=== PATIENT | female | born 1945 | race Caucasian/White ===

== ENCOUNTER 2017-07-08 13:55 | Outpatient (CLI) | payer OTHER ==
[~2017-07-08] VITALS: Ht 172.7 cm; Wt 81.7 kg
[2017-07-08 13:56] VITALS: BP 109/57; PULSE 75; RESP 18; Ht 172.7 cm; Wt 81.7 kg
--- NOTE | 2017-07-08 17:26 | PN ---
Date/Time of Note Date/Time of Note DATE: 07/08/17 TIME: 17:22 Assessment/Plan Assessment/Plan Assessment/Plan [facility] Progress Note Date of Service: 07/08/17 Location of Service: [facility] Today's Assessment & Plan: Overall stable with perc GB drain. Need official cardiology evaluation of perioperative risk prior to decision to take to OR vs. discontinuation of drain and follow up. No indication for acute surgical intervention. Discussed with patient (no family in the room) and answered all questions. Patient appeared to understand and agreed with plans. With above assessment, I've recommended the following for today: 1. Cardiology consultation with assessment of congestive heart failure and any risks that can be mitigated 2. We'll decide on drain management and possible surgical intervention after above is done Thank you again for allowing us to participate in the care of this very pleasant lady and her wonderful family. If there are any questions, please feel free to call me at area code [phone]. Nature of presenting problem: high severity Please note that, given the extensive number of diagnoses or management options , the extensive amount and/or complexity of data needed to be reviewed, and high risk of complications and/or morbidity or mortality, this qualifies as high complexity type of decision-making. Disclaimers: 1. Inadvertent spelling and grammatical errors are likely due to electronic health record (EHR)/dictation software used and do not reflect on the quality of delivered patient care. 2. The electronic timestamp recorded on this note does not necessarily reflect the actual date and time of the visit or the service. 3. Portions of this note may have been created through electronic templates and computer algorithms that might bring in information either from the system or from other physicians and providers. Please note that such information may or may not contain errors, the occurrence of which are outside of my control. In general (but not always) this happens either in the beginning or at the end of the note. The portion of the note that I have created are generally done in 1 continuous block of text, flanked at the beginning and at the end by " ", and entered into one field in the EHR. 4. There may be other unanticipated errors in the note that are outside of my control. I can only attest to the portions of the note that I have created. Updated clinical summary: A very pleasant 71-year-old lady, known to me since March 2017 when we managed severe acute on chronic cholecystitis in the setting of unacceptable operative risk due to congestive heart failure with percutaneous cholecystostomy tube placement, and with significant other comorbidities including BMI 27.2 ( previously 28.2 04/01), readmitted to [facility] on 06/18/17 when she presented with decreased output through her cholecystostomy tube. Drain sinogram and exchange on 06/19/17 with findings: 1. Initial cholangiogram demonstrates the cholecystostomy tube to be seen in the peripheral part of the gallbladder. There is multiple gallstones. There continues to be mild thickening of the gallbladder wall fundus.2. Successful cholecystostomy tube exchange for same size 8.5 [place] biliary drain. Contrast injection confirms intraluminal positioning. Due to extensive number of stones, the drain cannot be advanced into the midbody of the gallbladder. Discharged 06/19/17. Comorbidities: 1. BMI 27.2 (previously 28.2 04/01) 2. Congestive heart failure. History of exacerbation in 2009. Interestingly, the patient was able to walk with her outside for more than 40 minutes up to 2014. Currently, the patient gets severely short of breath trying to go up even one flight of stairs. She is able to move around in her house, but is unable to walk outside for long distances. Unclear how much of this is due to her joint problems. Patient does not have a risk lead site. She has been monitored by her primary care physician with screening EKGs and echocardiography 's. Records currently unavailable. 3. Hypertension 4. Hypercholesterolemia 5. History of hepatitis in her 20s 6. Drain sinogram and exchange [facility] 06/19/17: 1. Initial cholangiogram demonstrates the cholecystostomy tube to be seen in the peripheral part of the gallbladder. There is multiple gallstones. There continues to be mild thickening of the gallbladder wall fundus.. 2. Successful cholecystostomy tube exchange for same size 8.5 [place] biliary drain. Contrast injection confirms intraluminal positioning. Due to extensive number of stones, the drain cannot be advanced into the midbody of the gallbladder Subjective: No major events or complaints since d/c from [facility]. No major pain complaints and reportedly under control with medications. No N/V, SOB or CP. + bowel activity. Drian output remains in the 20 cc range. Objective: Vitals: reviewed; please also see EHR Physical Exam: Lungs: breathing comfortably without tachypnea; no audible wheezes, rales or rhonchi on gross exam Abd: Soft, non-tender, and non-distended; no peritoneal signs or guarding; drain with purulent output. Perc GB drain with purulent output in tubing and some in the bag (small amounts) Skin: Appears pink and feels warm to touch. Neuro: Awake, alert and follows commands appropriately Exam/Review of Systems Vital Signs Vitals Vital Signs Date Time Temp Pulse Resp B/P Pulse Ox O2 Delivery O2 Flow Rate FiO2 07/08/17 13:56 97.9 75 18 109/57 97 Room Air ALLISON OVALLE M.D. Jul 08, 2017 17:26
== END 2017-07-08 17:00 | disposition home or self-care (01) ==
LOC: HPC 13:55
PROVIDERS: ATTEND Transplant Surgery
DX: K80.12 Calculus of gallbladder with acute and chronic cholecystitis without obstruction (principal); I50.9 Heart failure, unspecified; I10 Essential (primary) hypertension; E78.00 Pure hypercholesterolemia, unspecified
CPT/HCPCS: G0463

== ENCOUNTER 2017-08-05 11:39 | Outpatient (CLI) | payer OTHER ==
[~2017-08-05] VITALS: Ht 172.7 cm; Wt 81.8 kg
[2017-08-05 11:43] VITALS: BP 116/67; PULSE 61; RESP 18; Ht 172.7 cm; Wt 81.8 kg
--- NOTE | 2017-08-05 13:50 | PN ---
DATE: 08/05/2017 [facility] PROGRESS NOTE PLACE OF SERVICE: [facility]. SUBJECTIVE: The patient returns today as a preoperative visit for scheduled laparoscopic cholecystectomy next week. She reports feeling well and has had 20 to 40 mL of drainage from her percutaneous cholecystostomy tube. No fevers or chills. No significant abdominal pain, no changes in her appetite and no other major complaints. OBJECTIVE: GENERAL: The patient appears to be afebrile and has normal white vital signs. ABDOMEN: Soft, nontender and nondistended. There is serous drainage with a hint of bile in the percutaneous cholecystostomy bag and a bit of purulent fluid. There are no peritoneal signs or guarding. SKIN: Appears to be pink and feels warm to touch. NEUROLOGIC: She is awake, alert and follows commands appropriately. 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 Alternatively, we discussed the option of just removing the drain, but I believe that this would not serve the purpose for patient well and that it would still have her at risk for further problems in the near future. The patient appeared to understand and agreed with the plans. With above assessments, I recommend the following: Proceed with scheduling laparoscopic cholecystectomy next week. Thank you again for allowing us to participate in the care of this very pleasant lady and her wonderful family. If there are any questions, please feel free to contact me at [phone]. Nature of presenting problem: High risk. Complexity of decision making: High complexity. Updated Clinical Summary: A very pleasant 71-year-old lady, known to me since March 2017 when we managed severe acute on chronic cholecystitis in the setting of unacceptable operative risk due to congestive heart failure with percutaneous cholecystostomy tube placement, and with significant other comorbidities including BMI 27.2 ( previously 28.2 04/01), readmitted to [facility] on 06/18/17 when she presented with decreased output through her cholecystostomy tube. Drain sinogram and exchange on 06/19/17 with findings: 1. Initial cholangiogram demonstrates the cholecystostomy tube to be seen in the peripheral part of the gallbladder. There is multiple gallstones. There continues to be mild thickening of the gallbladder wall fundus.2. Successful cholecystostomy tube exchange for same size 8.5 [place] biliary drain. Contrast injection confirms intraluminal positioning. Due to extensive number of stones, the drain cannot be advanced into the midbody of the gallbladder. Discharged 06/19/17. Comorbidities: 1. BMI 28.2 2. Congestive heart failure. History of exacerbation in 2009. Interestingly, the patient was able to walk with her outside for more than 40 minutes up to 2 years ago. Currently, the patient gets severely short of breath trying to go up even one flight of stairs. She is able to move around in her house, but is unable to walk outside for long distances. Unclear how much of this is due to her joint problems. 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 She has been monitored by her primary care physician with screening EKGs and echocardiography's. Records currently unavailable. 3. Hypertension 4. Hypercholesterolemia 5. History of hepatitis in her 20s 6. Drain sinogram and exchange [facility] 06/19/17: 1. Initial cholangiogram demonstrates the cholecystostomy tube to be seen in the peripheral part of the gallbladder. There is multiple gallstones. There continues to be mild thickening of the gallbladder wall fundus.. 2. Successful cholecystostomy tube exchange for same size 8.5 Palestinian biliary drain. Contrast injection confirms intraluminal positioning. Due to extensive number of stones, the drain cannot be advanced into the midbody of the gallbladder Dictated By: ALLISON GARCIA/NTS Conf#: [id number] DID#: [id number] CC: KIARRA NORTON MD;*EndCC* MTDD
== END 2017-08-05 16:30 | disposition home or self-care (01) ==
LOC: HPC 11:39
PROVIDERS: ATTEND Transplant Surgery
DX: I50.9 Heart failure, unspecified (principal); I10 Essential (primary) hypertension; E78.00 Pure hypercholesterolemia, unspecified; K75.9 Inflammatory liver disease, unspecified
CPT/HCPCS: G0463

== ENCOUNTER 2017-08-13 07:53 | Inpatient (IN) | payer OTHER ==
[~2017-08-13] VITALS: Ht 172.7 cm; Wt 81.4 kg
[2017-08-13] VITALS (19 sets, daily range): BP systolic 97–127; BP diastolic 55–77; PULSE 66–98; RESP 11–34; Ht 172.7 cm; Wt 81.4 kg
[2017-08-13] MEDS ORDERED: LISI20TA11 PO (08:30)
[2017-08-13] MEDS ORDERED: CARV25TA79 PO (08:30)
[2017-08-13] MEDS ORDERED: FURO40TA4 PO (08:30)
[2017-08-13] MEDS ORDERED: SIMV40TA2 PO (08:31)
[2017-08-13] MEDS ORDERED: MAGN500C PO (08:32)
[2017-08-13] MEDS ORDERED: ASPI-664 PO (08:32)
[2017-08-13] MEDS ORDERED: OMEG1CAP17 PO (08:33)
[2017-08-13] MEDS ORDERED: ALEN70TA30 PO (08:34)
[2017-08-13] MEDS ORDERED: CALC600T24 PO (08:34)
[2017-08-13] MEDS ORDERED: BUPIVACAINE 0.5%/EPI (SDV) 30 ML INJ ONE (08:38)
[2017-08-13] MEDS ORDERED: CEFAZOLIN 2 GM/50 ML (PMX) 50 ML IVPB SCH (09:00)
--- NOTE | 2017-08-13 10:27 | HPN ---
Date/Time of Note Date/Time of Note DATE: 08/13/17 TIME: 10:27 Interval H&P Admission Note Pt. seen H&P reviewed: No system changes Pt. seen H&P reviewed. No system changes (I attest that I have seen and examined the patient and reviewed the operation in detail, as well as its risks , benefits and alternatives of the operation). I attest that I have seen and examined the patient and reviewed in detail the operation, and its associated risks, benefits and alternative. I have answered all the patient's questions to the best of my ability and the patient wishes to proceed. Please refer to rest of electronic medical record for additional updates. ALLISON OVALLE M.D. Aug 13, 2017 10:27
[2017-08-13] MEDS ORDERED: PROPOFOL 20 ML ONE (10:38)
[2017-08-13] MEDS ORDERED: LIDOCAINE 2% (SDV) 5 ML INJ ONE (10:38)
[2017-08-13] MEDS ORDERED: SUCCINYLCHOLINE CHLORIDE 100 MG/5 ML SYG IV ONE (10:38)
[2017-08-13] MEDS ORDERED: ROCURONIUM 50 MG INJ ONE ×2 (10:38→12:33)
[2017-08-13] MEDS ORDERED: NEOSTIGMINE 3 MG/3 ML SYRINGE ONE ×2 (10:38→12:33)
[2017-08-13] MEDS ORDERED: GLYCOPYRROLATE 0.4 MG INJ ONE ×2 (10:38→12:33)
[2017-08-13] MEDS ORDERED: MEPERIDINE 100 MG INJ ONE (10:38)
[2017-08-13] MEDS ORDERED: METOCLOPRAMIDE 10 MG INJ ONE (10:39)
[2017-08-13] MEDS ORDERED: ONDANSETRON 4 MG INJ ONE (10:39)
[2017-08-13] MEDS ORDERED: CEFAZOLIN 1 GM INJ ONE (10:39)
[2017-08-13] MEDS ORDERED: BUPIVACAINE 0.25%/EPI (SDV) 30 ML INJ INJ ONE (13:22)
[2017-08-13] MEDS ORDERED: ONDANSETRON 4 MG INJ IV PRN (13:30)
[2017-08-13] MEDS ORDERED: FENTAnyl 50 MCG/ML VIAL IV PRN ×3 (13:30)
[2017-08-13] MEDS ORDERED: METOCLOPRAMIDE 10 MG INJ IV PRN (13:30)
[2017-08-13] MEDS ORDERED: MIDAZOLAM 1 MG/ML 2 ML INJ IV PRN (13:30)
[2017-08-13] MEDS ORDERED: hydrALAzine 20 MG INJ IV PRN (13:30)
[2017-08-13] MEDS ORDERED: OXYCODONE/ACETAMINOPHEN (5/325) TAB PO PRN ×2 (13:30)
[2017-08-13] MEDS ORDERED: LABETALOL HCL 20MG INJ IV PRN (13:30)
[2017-08-13] MEDS ORDERED: MEPERIDINE 25 MG INJ IV PRN (13:30)
[2017-08-13] MEDS ORDERED: HYDROmorphONE (0.2 MG/ML) 10ML SYG IV PRN ×2 (13:30)
[2017-08-13] MEDS ORDERED: DIPHENHYDRAMINE 50 MG INJ IV PRN (13:30)
[2017-08-13] MEDS ORDERED: EPHEDrine SULFATE 50 MG/5 ML SYG IV PRN (13:30)
[2017-08-13] MEDS ORDERED: HYDROCODONE/APAP (5/325) TAB PO PRN ×2 (14:30)
[2017-08-13] MEDS ORDERED: DOCUSATE SODIUM 100 MG CAP PO PRN (14:30)
[2017-08-13] MEDS ORDERED: NA PHOSPHATE/BIPHOS 133 ML ENEMA PR PRN (14:30)
[2017-08-13] MEDS ORDERED: HYDROmorphONE 0.5 MG/0.5 ML SYG IV PRN (14:30)
[2017-08-13] MEDS ORDERED: BISACODYL 10 MG SUPP PR PRN (14:30)
--- NOTE | 2017-08-13 14:30 | OPR ---
Date/Time of Note Date/Time of Note DATE: 08/13/17 TIME: 14:30 Operative Report Free Text/Dictation [facility] INPATIENT OPERATIVE NOTE PLACE OF SERVICE: [facility] DATE OF SURGERY: 08/13/2017 PREOPERATIVE DIAGNOSIS: 1. Severe acute cholecystitis requiring percutaneous cholecystostomy drain placement February 2017 [facility] 1. BMI 28.2 2. Congestive heart failure. History of exacerbation in 2009. Interestingly, the patient was able to walk with her outside for more than 40 minutes up to 2 years ago. Currently, the patient gets severely short of breath trying to go up even one flight of stairs. She is able to move around in her house, but is unable to walk outside for long distances. Unclear how much of this is due to her joint problems. Patient does not have a sheeting puller site. She has been monitored by her primary care physician with screening EKGs and echocardiography's. Records currently unavailable. 3. Hypertension 4. Hypercholesterolemia 5. History of hepatitis in her 20s 6. Drain sinogram and exchange [facility] 06/19/17: Initial cholangiogram demonstrates the cholecystostomy tube to be seen in the peripheral part of the gallbladder. There is multiple gallstones. There continues to be mild thickening of the gallbladder wall fundus. Successful cholecystostomy tube exchange for same size 8.5 [place] biliary drain. Contrast injection confirms intraluminal positioning. Due to extensive number of stones, the drain cannot be advanced into the midbody of the gallbladder POSTOPERATIVE DIAGNOSIS: 1. Severe acute cholecystitis requiring percutaneous cholecystostomy drain placement February 2017 [facility] 1. BMI 28.2 2. Congestive heart failure. History of exacerbation in 2009. Interestingly, the patient was able to walk with her outside for more than 40 minutes up to 2 years ago. Currently, the patient gets severely short of breath trying to go up even one flight of stairs. She is able to move around in her house, but is unable to walk outside for long distances. Unclear how much of this is due to her joint problems. Patient does not have a sheeting puller site. She has been monitored by her primary care physician with screening EKGs and echocardiography's. Records currently unavailable. 3. Hypertension 4. Hypercholesterolemia 5. History of hepatitis in her 20s 6. Drain sinogram and exchange [facility] 06/19/17: Initial cholangiogram demonstrates the cholecystostomy tube to be seen in the peripheral part of the gallbladder. There is multiple gallstones. There continues to be mild thickening of the gallbladder wall fundus. Successful cholecystostomy tube exchange for same size 8.5 [place] biliary drain. Contrast injection confirms intraluminal positioning. Due to extensive number of stones, the drain cannot be advanced into the midbody of the gallbladder OPERATION: 1. Laparoscopic cholecystectomy SURGEON: Allison Ovalle M.D. DATA COMMUNICATIONS TECHNICIAN: None ANESTHESIA: General endotracheal tube anesthesia ANESTHESIOLOGIST: Adonis Camarillo M.D. BRIEF SUMMARY: An otherwise uncomplicated but challenging laparoscopic cholecystectomy was performed with findings of severe chronic cholecystitis. Updated Clinical Summary: A very pleasant 71-year-old lady, known to me since March 2017 when we managed severe acute on chronic cholecystitis in the setting of unacceptable operative risk due to congestive heart failure with percutaneous cholecystostomy tube placement, and with significant other comorbidities including BMI 27.2 ( previously 28.2 04/01), readmitted to [facility] on 06/18/17 when she presented with decreased output through her cholecystostomy tube. Drain sinogram and exchange on 06/19/17 with findings: 1. Initial cholangiogram demonstrates the cholecystostomy tube to be seen in the peripheral part of the gallbladder. There is multiple gallstones. There continues to be mild thickening of the gallbladder wall fundus.2. Successful cholecystostomy tube exchange for same size 8.5 [place] biliary drain. Contrast injection confirms intraluminal positioning. Due to extensive number of stones, the drain cannot be advanced into the midbody of the gallbladder. Discharged 06/19/17. Comorbidities: 1. BMI 28.2 2. Congestive heart failure. History of exacerbation in 2009. Interestingly, the patient was able to walk with her outside for more than 40 minutes up to 2 years ago. Currently, the patient gets severely short of breath trying to go up even one flight of stairs. She is able to move around in her house, but is unable to walk outside for long distances. Unclear how much of this is due to her joint problems. Patient does not have a sheeting puller site. She has been monitored by her primary care physician with screening EKGs and echocardiography's. Records currently unavailable. 3. Hypertension 4. Hypercholesterolemia 5. History of hepatitis in her 20s 6. Drain sinogram and exchange [facility] 06/19/17: 1. Initial cholangiogram demonstrates the cholecystostomy tube to be seen in the peripheral part of the gallbladder. There is multiple gallstones. There continues to be mild thickening of the gallbladder wall fundus.. 2. Successful cholecystostomy tube exchange for same size 8.5 [place] biliary drain. Contrast injection confirms intraluminal positioning. Due to extensive number of stones, the drain cannot be advanced into the midbody of the gallbladder BRIEF HISTORY: The patient is a very pleasant 71-year-old lady, known to me since March 2017 when we managed severe acute on chronic cholecystitis in the setting of what we believe that the time to be unacceptable operative risk due to congestive heart failure with percutaneous cholecystostomy tube placement at [facility]. Patient had one other admission of the hospital which was managed nonoperatively. Her percutaneous cholecystostomy drain was checked and repositioned/exchanged. Further history that was obtained indicated probable less amount of risk from congestive heart failure. She had careful evaluation by cardiology who deemed her to be moderate risk for an operative intervention. Given the appearance of her images and clinical picture, I still recommend that we perform a laparoscopic, possible open cholecystectomy. We reviewed the operation in detail as well as the risks, benefits, alternatives, and expected outcomes of this operation. After careful consideration of all the risks, benefits, and alternatives, the patient and family appeared to understand those risks and wished to proceed with surgery. For a detailed report of my consultation with patient and family, please refer to my separate consultation note. STATEMENT OF THE INFORMED CONSENT: The patient and family appeared to understand the risks of the operation to include, but not be limited to risk of postoperative pain and scar tissue, possible infection or bleeding requiring other interventions such as opening the wound, placement of drainage catheters, or other operative interventions; possible injury to surrounding to structures including bowel, bladder, bile duct, or blood vessels, or solid organs such as liver, kidney, or pancreas requiring other interventions or procedures; possible leakage of bile from surgical clip sites, suture lines, or worse, from common bile duct injury, causing significant increase in morbidity and mortality and requiring multiple interventions including but not limited to, placement of drainage catheters, imaging studies, as well as operative interventions; possible other source of sepsis such as urinary tract infections or pneumonias, or other sources of potentially life threatening problems such as deep venous thrombus formation causing pulmonary embolism, myocardial arrhythmias and infarctions, and even . Patient and family clearly understood that her risk is significantly above average given her cardiac history. Our plan was careful monitoring of the patient in house after the operation for any cardiac issues postop. After careful consideration of all their options, the patient and family appeared to understand and wished to proceed with surgery. DESCRIPTION OF PROCEDURE: After obtaining informed consent, the patient was brought into the operating room and was placed in a normal supine position, where successful general endotracheal tube anesthesia was performed. The patient 's abdominal skin was prepped and draped, from the nipple line down to the level of the groins, in the usual sterile fashion. Intravenous access was already in place, and appropriately chosen and dosed prophylactic intravenous antimicrobials were administered. We then called a surgical time-out where patient's identification, date of , nature of the operation, allergies, presence of intravenous antimicrobials, presence of needed equipment, and any other concerns were reviewed and agreed upon by all members of the operating room team. We then started the operation by placing a 5-mm skin incision in the right- upper quadrant, subcostal midclavicular line, and introduced a 5-mm [employer] trocar into the peritoneal space, visualizing all the layers of the abdominal wall as we entered. Note that there was no indication of any injury to underlying structures once we entered the peritoneum. We insufflated the abdominal cavity to a maximum pressure of 15 mmHg, again, confirmed lack of any injury to underlying structures prior to visualizing the rest of the abdominal cavity. We could not see the fundus of the gallbladder or for that matter most of the anatomy below the right edge of liver. There was no evidence of malignancy. No evidence of calcifications or significant issues with adhesions, or other abnormalities. The liver appeared to be healthy. With this information, we went a head and placed the other trocars under direct visualization, after injecting their sites with 0.25% Marcaine with epinephrine , placing a 5-mm trocar in the umbilical midline area, a 5-mm trocar in the right anterior axillary line, and a 12-mm trocar in the midline subxiphoid region. With our instruments in place, we had excellent visualization and access to the right-upper quadrant. We then started a very meticulous dissection with use of blunt dissection and judicious use of cautery in order to carefully take down the omental adhesions onto the body of the gallbladder which were extensive and encompassed the entire length of the gallbladder. After careful dissection of more than 30 minutes, I was able to completely free the omental adhesions as well as the duodenal adhesions onto the body of the gallbladder without any injury to underlying structures. We placed a Ray-Krystle inside and use this to lift the liver up while we used cautery and blunt dissection to take the gallbladder top- down in order to maximize the degree of safety of the operation given the amount of scar tissue in the area of triangle of Calot low. Shortly after start of the dissection, we saw that we had entered the gallbladder. We use a suction tip to suction off excess fluid from this region and made this opening larger in order to be able to use the stone concession cashier to remove innumerable small to medium sized stones from the gallbladder. All of these were meticulously removed and there was no stones that were spilled and left behind. The wall the gallbladder was visible and it was healthy besides the presence of the stones. I was able to see the pigtail catheter coming through the gallbladder bed into the gallbladder itself. We remove this catheter from the outside (in 2 pieces) and send this to pathology for gross ID only. I then continued the dissection of the gallbladder all the way down to the area of triangle of Calot low. We were able to eventually identify the course of the cystic artery and circumferentially isolated before transection between 2 surgical endoclips proximally and one distally. I then continued the dissection until we were satisfied that we had the cystic duct isolated. Since the diameter of this structure was larger than the 10 mm clip food adviser, I used one firing of the vascular (white) load of the Endo ANYI stapler (45 mm) to transect across the cystic duct region and separate the gallbladder from the body. The stapler fired without any technical difficulties and the staple rows appear to be nice and signal helper. The staple line was hemostatic and there was no bile leakage. We then delivered the gallbladder out inside of an EndoCatch bag through the 12- mm trocar site without enlarging the fascia or contaminating the wound. The gallbladder was sent to Pathology for evaluation. Returning to the abdominal cavity, we ensured that there was adequate hemostasis and bile-stasis prior to removal of all of or equipment, including the Ray-Krystle that we had inside as well as the pneumoperitoneum, and then reapproximating the 12-mm trocar site with one [id number] 0 Vicryl suture, followed by washing the wounds with copious amounts of normal saline, and then reapproximating the skin using interrupted 4-0 Monocryl sutures. Light dressing was then applied. At the end of the operation, both the sponge count and needle count were reportedly correct x2. The patient tolerated the procedure without any reported complications. ESTIMATED BLOOD LOSS: 30 mL BLOOD OR BLOOD PRODUCT TRANSFUSIONS: None to my knowledge. SPECIMENS: 1. Gallbladder with numerous stones 2. Percutaneous cholecystostomy pigtail drain (in 2 pieces) GRAFTS: None COMPLICATIONS: None. DISPOSITION: Recovery area. Disclaimers: 1. Inadvertent spelling and grammatical errors are likely due to electronic health record (EHR)/dictation software used and do not reflect on the quality of delivered patient care. 2. The electronic timestamp recorded on this note does not necessarily reflect the actual date and time of the visit or the service. 3. Portions of this note may have been created through electronic templates and computer algorithms that might bring in information either from the system or from other physicians and providers. Please note that such information may or may not contain errors, the occurrence of which are outside of my control. In general (but not always) this happens either in the beginning or at the end of the note. The portion of the note that I have created are generally done in 1 continuous block of text, flanked at the beginning and at the end by " ", and entered into one field in the EHR. 4. There may be other unanticipated errors in the note that are outside of my control. I can only attest to the portions of the note that I have created. ALLISON OVALLE M.D. Aug 13, 2017 14:30
[2017-08-13] MEDS: HYDROmorphONE (0.2 MG/ML) 10ML SYG IV PRN ×2 (15:11→16:40)
[2017-08-13] MEDS: D5W-0.45 NACL + KCL 20 MEQ 1,000 ML IV SCH ×2 (15:16→18:47)
--- NOTE | 2017-08-13 17:56 | PN ---
Date/Time of Note Date/Time of Note DATE: 08/13/17 TIME: 17:50 Assessment/Plan VTE Prophylaxis VTE Prophylaxis Intervention: LMWH Lines/Catheters IV [facility] (from [facility]): Peripheral IV Assessment/Plan Assessment/Plan 71-year-old female with: 1. Status post elective cholecystectomy for chronic cholecystitis. POD#0 Follow-up further recommendations in a.m. from Dr. Huang Patient remained stable currently postoperatively. Follow-up labs in a.m. 2. Reported congestive heart failure, unclear if diastolic versus systolic, BNP pending, patient euvolemic on exam. Follow-up labs in a.m., for now holding off lisinopril and Lasix. Will resume carvedilol at a lower dose and titrate back to outpatient dosing if tolerated. Resume aspirin if okay with general surgery. We will attempt to see if the patient had a recent echocardiogram, if not we will get an echocardiogram to reevaluate ejection fraction. Patient reports that she was diagnosed 10 years ago and no medication changes since then and no episode of volume overload since then. 3. Hypertension: Resume home medication progressively as blood pressure tolerates, carvedilol is the first medication to be resumed given her history of congestive heart failure. 4. Hyperlipidemia: Resume statin therapy 5. Osteoporosis: resume outpatient medication at time of discharge. Prophylaxis: Lovenox for DVT prophylaxis and Pepcid for GI prophylaxis Disposition: Agree with telemetry admission given history, follow-up on laboratory data in a.m. and possibly 2D echocardiogram. Subjective 24 Hr Interval Summary Free Text/Dictation Patient doing well postoperatively, she has been seen in PACU. Vital signs stable, on room air and euvolemic. She is status post cholecystectomy for chronic cholecystitis Exam/Review of Systems Vital Signs Vitals Vital Signs Date Time Temp Pulse Resp B/P Pulse Ox O2 Delivery O2 Flow Rate FiO2 08/13/17 16:31 82 21 118/65 95 Room Air 08/13/17 13:45 98.4 Exam Constitutional: alert, oriented, well developed Respiratory: clear to auscultation, normal air movement Cardiovascular: nl pulses, regular rate and rhythm Gastrointestinal: other (Status post cholecystectomy), soft Musculoskeletal: nl extremities to inspection Extremities: normal pulses, other (No edema, clubbing or cyanosis) Neurological: LAST MODEL DEPARTMENT SUPERVISOR II-XII intact, nl mental status, nl speech, other (Limited exam as patient is still postoperative and in PACU) Medications Medications Current Medications Potassium Chloride/Dextrose/ Sod Cl (D5-1/2ns + KCl 20 Meq) 1,000 ml @ 100 mls/ hr Q10H IV Last administered on 08/13/17t 15:16; Admin Dose 100 MLS/HR; Start 08/13/17 at 09:00 Acetaminophen/ Hydrocodone Bitart ([place] (5/325)) 1 tab Q4H PRN PO PAIN LEVEL 4 -7; Start 08/13/17 at 14:30 Acetaminophen/ Hydrocodone Bitart ([place] (5/325)) 2 tab Q4H PRN PO PAIN LEVEL 7 -10; Start 08/13/17 at 14:30 Hydromorphone HCl (Dilaudid) 0.5 mg Q2 PRN IV PAIN; Start 08/13/17 at 14:30 Hydromorphone HCl (Dilaudid) 1 mg Q2 PRN IV PAIN; Start 08/13/17 at 14:30 Docusate Sodium (Colace) 100 mg BID PRN PO CONSTIPATION; Start 08/13/17 at 14: 30 Bisacodyl (Dulcolax Supp) 10 mg BID PRN IN CONSTIPATION; Start 08/13/17 at 14: 30 Sodium Biphosphate/ Sodium Phosphate (Fleet Enema) 133 ml BID PRN IN CONSTIPATION; Start 08/13/17 at 14:30 Enoxaparin Sodium (Lovenox) 40 mg DAILY SC ; Start 08/14/17 at 09:00 Famotidine (Pepcid) 40 mg HS PO ; Start 08/13/17 at 21:00 Atorvastatin Calcium (Lipitor) 20 mg DAILY@21 PO ; Start 08/13/17 at 21:00 Carvedilol (Coreg) 6.25 mg BID PO ; Start 08/13/17 at 21:00 Procedures Procedures Status post cholecystectomy with drain placed WADE BRINK Aug 13, 2017 17:56 WADE BRINK Aug 13, 2017 17:56
[2017-08-13] MEDS: HYDROmorphONE 1 MG/ML SYG IV PRN ×2 (18:48→23:46)
[2017-08-13] MEDS ORDERED: FAMOTIDINE 20 MG TAB PO SCH (21:00)
[2017-08-13] MEDS ORDERED: ATORVASTATIN 20 MG TAB PO SCH (21:00)
[2017-08-14] VITALS (8 sets, daily range): BP systolic 104–126; BP diastolic 55–68; PULSE 89–94; RESP 18–19
[2017-08-14] MEDS: HYDROmorphONE 1 MG/ML SYG IV PRN ×2 (04:30→09:21)
[2017-08-14] MEDS: D5W-0.45 NACL + KCL 20 MEQ 1,000 ML IV SCH (05:00)
[2017-08-14] MEDS ORDERED: ENOXAPARIN 40 MG/0.4 ML SYG SC SCH (09:00)
[2017-08-14 09:30] LABS: BASOPHILS % 0.3 % (0.0-2.0); EOSINOPHILS % 0.6 % (0.0-7.0); HEMATOCRIT 33.8 % (37.0-47.0); HEMOGLOBIN 11.5 g/dl (12.0-16.0); LYMPHOCYTES # 1.2 10^3/ul (0.8-2.9); MEAN CORPUSCULAR VOLUME 91.1 fl (82.0-101.0); MEAN PLATELET VOLUME 9.1 fl (7.4-10.4); MONOCYTE # 0.6 10^3/ul (0.3-0.9); MONOCYTES % 9.5 % (0.0-11.0); NEUTROPHIL # 4.6 10^3/ul (1.6-7.5); NEUTROPHILS % 71.1 % (39.0-77.0); PLATELET COUNT 175 10^3/UL (140-415); RED BLOOD COUNT 3.71 10^6/ul (4.20-5.40); RED CELL DISTRIBUTION WIDTH 12.9 % (11.5-14.5); WHITE BLOOD COUNT 6.5 10^3/ul (4.8-10.8)
[2017-08-14 09:54] LABS: ALBUMIN 3.3 g/dl (3.3-4.9); ALBUMIN/GLOBULIN RATIO 1.03; BILIRUBIN,INDIRECT 2.1 mg/dl (0-1.1); BILIRUBIN,TOTAL 2.1 mg/dl (0.2-1.3); CALCIUM 8.3 mg/dl (8.4-10.2); CREATININE 0.66 mg/dl (0.44-1.00); MAGNESIUM 1.9 mg/dl (1.7-2.5); PHOSPHORUS 2.9 mg/dl (2.5-4.9); POTASSIUM 4.3 mmol/L (3.5-5.1); TOTAL PROTEIN 6.5 g/dl (6.1-8.1)
[2017-08-14 10:23] LABS: INR 1.13; PROTIME 14.5 Sec (12.2-14.2); PT RATIO 1.1
[2017-08-14 10:24] LABS: PARTIAL THROMBOPLASTIN TIME 34.9 Sec (25.0-35.0)
--- NOTE | 2017-08-14 12:17 | PN ---
Date/Time of Note Date/Time of Note DATE: 08/14/17 TIME: 12:14 Assessment/Plan VTE Prophylaxis VTE Prophylaxis Intervention: SCD's Lines/Catheters IV Catheter Type (from [facility]): Peripheral IV Assessment/Plan Assessment/Plan 71-year-old female with: 1. Status post elective cholecystectomy for chronic cholecystitis, patient had a drain placed postoperatively. POD#1. Appreciate recommendations from Dr. Huang Patient remained stable currently postoperatively. Labs stable this morning, patient to be discharged home. Follow-up with general surgery in 1 week 2. Reported congestive heart failure, unclear if diastolic versus systolic, BNP actually close to normal this morning. Patient euvolemic on exam. She is to resume home medication and follow-up with primary care physician. May resume her blood pressure meds in the next 24-48 hours. 3. Hypertension: May resume her medications in the next day or 2 4. Hyperlipidemia: Resume statin therapy 5. Osteoporosis: resume outpatient medication. Prophylaxis: Lovenox for DVT prophylaxis and Pepcid for GI prophylaxis Disposition: Discharge home today, follow-up with primary care physician within 1 week, follow-up with Dr. Huang in 1 week. Subjective 24 Hr Interval Summary Free Text/Dictation Patient doing well, tolerating p.o., pain controlled with oral medications. Labs have been reviewed and within normal. Okay to discharge home per general surgery. Exam/Review of Systems Vital Signs Vitals Vital Signs Date Time Temp Pulse Resp B/P Pulse Ox O2 Delivery O2 Flow Rate FiO2 08/14/17 11:40 98.3 92 18 120/59 93 08/13/17 18:01 Room Air Intake and Output 08/13/17 08/13/17 08/14/17 15:00 23:00 07:00 Intake Total 900 ml 400 ml Output Total 40 ml Balance 860 ml 400 ml Exam Constitutional: alert, oriented, well developed Respiratory: clear to auscultation, normal air movement Cardiovascular: nl pulses, regular rate and rhythm Gastrointestinal: non-tender, soft Musculoskeletal: nl extremities to inspection, nl gait and stance Extremities: normal pulses Neurological: PIN CLEANER II-XII intact, nl mental status, nl speech, nl strength Results Result Diagram: 08/14/17 0857 08/14/17 0857 Results 24 hrs Laboratory Tests Test 08/14/17 08:57 White Blood Count 6.5 Red Blood Count 3.71 L Hemoglobin 11.5 L Hematocrit 33.8 L Mean Corpuscular Volume 91.1 Mean Corpuscular Hemoglobin 31.0 Mean Corpuscular Hemoglobin Concent 34.0 Red Cell Distribution Width 12.9 Platelet Count 175 Mean Platelet Volume 9.1 Neutrophils % 71.1 Lymphocytes % 18.0 Monocytes % 9.5 Eosinophils % 0.6 Basophils % 0.3 Nucleated Red Blood Cells % 0.0 Neutrophils # 4.6 Lymphocytes # 1.2 Monocytes # 0.6 Eosinophils # 0.0 Basophils # 0.0 Nucleated Red Blood Cells # 0.0 Prothrombin Time 14.5 H Prothrombin Time Ratio 1.1 INR International Normalized Ratio 1.13 Activated Partial Thromboplast Time 34.9 Sodium Level 133 L Potassium Level 4.3 Chloride Level 97 Carbon Dioxide Level 30 Anion Gap 10 Blood Urea Nitrogen 12 Creatinine 0.66 Glucose Level 108 Calcium Level 8.3 L Phosphorus Level 2.9 Magnesium Level 1.9 Total Bilirubin 2.1 H Direct Bilirubin 0.00 Indirect Bilirubin 2.1 H Aspartate Amino Transf (AST/SGOT) 53 H Alanine Aminotransferase (ALT/SGPT) 66 Alkaline Phosphatase 62 B-Type Natriuretic Peptide 299 H Total Protein 6.5 Albumin 3.3 Globulin 3.20 Albumin/Globulin Ratio 1.03 Medications Medications Current Medications Potassium Chloride/Dextrose/ Sod Cl (D5-1/2ns + KCl 20 Meq) 1,000 ml @ 100 mls/ hr Q10H IV Last administered on 08/14/17 05:00; Admin Dose 100 MLS/HR; Start 08/13/17 at 09:00 Acetaminophen/ Hydrocodone Bitart ([place] (5/325)) 1 tab Q4H PRN PO PAIN LEVEL 4 -7; Start 08/13/17 at 14:30 Acetaminophen/ Hydrocodone Bitart ([place] (5/325)) 2 tab Q4H PRN PO PAIN LEVEL 7 -10; Start 08/13/17 at 14:30 Hydromorphone HCl (Dilaudid) 0.5 mg Q2 PRN IV PAIN; Start 08/13/17 at 14:30 Hydromorphone HCl (Dilaudid) 1 mg Q2 PRN IV PAIN Last administered on 09:21; Admin Dose 1 MG; Start 08/13/17 at 14:30 Docusate Sodium (Colace) 100 mg BID PRN PO CONSTIPATION; Start 08/13/17 at 14: 30 Bisacodyl (Dulcolax Supp) 10 mg BID PRN ME CONSTIPATION; Start 08/13/17 at 14: 30 Sodium Biphosphate/ Sodium Phosphate (Fleet Enema) 133 ml BID PRN ME CONSTIPATION; Start 08/13/17 at 14:30 Enoxaparin Sodium (Lovenox) 40 mg DAILY SC Last administered on 08/14/17 08: 37; Admin Dose 40 MG; Start 08/14/17 at 09:00 Famotidine (Pepcid) 40 mg HS PO Last administered on 08/13/17 21:00; Admin Dose 40 MG; Start 08/13/17 at 21:00 Atorvastatin Calcium (Lipitor) 20 mg DAILY@21 PO Last administered on 21:00; Admin Dose 20 MG; Start 08/13/17 at 21:00 Carvedilol (Coreg) 6.25 mg BID PO Last administered on 08/13/17 21:00; Admin Dose 6.25 MG; Start 08/13/17 at 21:00 WADE BRINK Aug 14, 2017 12:17
--- NOTE | 2017-08-14 12:19 | PDOCDIS ---
Discharge Instructions CONDITION Patient Condition: Stable HOME CARE INSTRUCTIONS: Special Diet: reg ACTIVITY: Activity Restrictions: No Restrictions FOLLOW UP/APPOINTMENTS Follow-up Plan Follow-up with primary care physician within 1 week Follow-up with Dr. Huang in 1-2 weeks OTHER ORDERS: Other Orders: Resume carvedilol and lisinopril in the next 24-48 hours WADE BRINK Aug 14, 2017 12:19
[2017-08-14] MEDS ORDERED: HYDR-3498 PO (12:22)
[2017-08-14] MEDS ORDERED: DOCU-144 PO (12:27)
--- NOTE | 2017-08-14 17:32 | DS ---
Date/Time of Note Date/Time of Note DATE: 08/14/17 TIME: 17:27 Discharge Summary Admission/Discharge Info Admit Date/Time Aug 13, 2017 at 07:53 Discharge Date/Time Aug 14, 2017 at 13:17 Discharge Diagnosis 1. Status post elective cholecystectomy for chronic cholecystitis, 2. Reported congestive heart failure, unclear if diastolic versus systolic, BNP actually close to normal 3. Hypertension 4. Hyperlipidemia 5. Osteoporosis Patient Condition: Stable Consults General/hepatobiliary Surgery, Dr Huang Procedures Elective laparoscopy cholecystectomy Hx of Present Illness 71-year-old female with chronic cholecystitis, had drain placement multiple times and outpatient surgical management, finally was brought in for elective cholecystectomy by Dr. Huang Hospital Course Post laparoscopic cholecystectomy for her chronic cholecystitis, patient was admitted to a telemetry bed overnight due to a reported history of congestive heart failure, however she remained in sinus rhythm, she remained euvolemic, her BNP this morning was within normal most, pain is controlled, she is tolerating p.o., she will be discharged home. She is to resume her cardiac medications within 24-48 hours. I have advised her to hold off her Lasix for now until the next 2-3 days. She needs to follow-up with Dr. Huang and her primary care physician in the next 1 to 2 weeks. Home Meds Active Scripts Docusate Sodium* (Colace*) 100 Mg Capsule, 100 MG PO BID Y for CONSTIPATION, # 60 CAP Prov:WADE BRINK 08/14/17 Hydrocodone Bit-Acetaminophen (Hydrocodone Bit-APAP) 5-325MG Tablet, 1 TAB PO Q6H Y for PAIN, #60 TAB Prov:WADE BRINK 08/14/17 Reported Medications Alendronate Sodium* (Fosamax*) 70 Mg Tablet, 70 MG PO EVERY SATURDAY, #4 TAB 08/13/17 Calcium Carbonate* (Calcium Carbonate*) 600 MG Ca Tab, 600 MG PO DAILY, TAB 08/13/17 Jefferson-3 Fatty Acids/Fish Oil (Fish Oil 1,000 mg Softgel) 1 Each Capsule, 1 EACH PO BID, CAP 08/13/17 Magnesium Oxide (Magnesium) 500 Mg Capsule, 500 MG PO DAILY, CAP 08/13/17 Aspirin (Low Dose Aspirin) 81 Mg Tablet., 81 MG PO DAILY, #30 TAB 08/13/17 Simvastatin* (Zocor*) 40 Mg Tablet, 40 MG PO QHS, #30 TAB 08/13/17 Lisinopril* (Lisinopril*) 20 Mg Tablet, 20 MG PO DAILY, #30 TAB 08/13/17 Carvedilol* (Carvedilol*) 25 Mg Tablet, 25 MG PO BID, #60 TAB 08/13/17 Discontinued Reported Medications Furosemide* (Furosemide*) 40 Mg Tablet, 40 MG PO DAILY, TAB 08/13/17 Follow-up Plan Follow-up with primary care physician within 1 week Follow-up with Dr. Huang in 1-2 weeks Primary Care Provider Spring Garrett Time spent on discharge: > 30 minutes Pending Labs Laboratory Tests Test 08/14/17 08:57 White Blood Count 6.510^3/ul (4.8-10.8) Red Blood Count 3.7110^6/ul (4.20-5.40) Hemoglobin 11.5g/dl (12.0-16.0) Hematocrit 33.8% (37.0-47.0) Mean Corpuscular Volume 91.1fl (82.0-101.0) Mean Corpuscular Hemoglobin 31.0pg (29.0-33.0) Mean Corpuscular Hemoglobin Concent 34.0g/dl (32.0-37.0) Red Cell Distribution Width 12.9% (11.5-14.5) Platelet Count 91808^3/UL (140-415) Mean Platelet Volume 9.1fl (7.4-10.4) Neutrophils % 71.1% (39.0-77.0) Lymphocytes % 18.0% (15.0-51.0) Monocytes % 9.5% (0.0-11.0) Eosinophils % 0.6% (0.0-7.0) Basophils % 0.3% (0.0-2.0) Nucleated Red Blood Cells % 0.0/100WBC (0.0-0.0) Neutrophils # 4.610^3/ul (1.6-7.5) Lymphocytes # 1.210^3/ul (0.8-2.9) Monocytes # 0.610^3/ul (0.3-0.9) Eosinophils # 0.010^3/ul (0.0-0.5) Basophils # 0.010^3/ul (0.0-0.1) Nucleated Red Blood Cells # 0.010^3/ul (0.0-0.0) Prothrombin Time 14.5Sec (12.2-14.2) Prothrombin Time Ratio 1.1 INR International Normalized Ratio 1.13 Activated Partial Thromboplast Time 34.9Sec (25.0-35.0) Sodium Level 133mmol/L (135-144) Potassium Level 4.3mmol/L (3.5-5.1) Chloride Level 97mmol/L (97-110) Carbon Dioxide Level 30mmol/L (21-31) Anion Gap 10 (8-16) Blood Urea Nitrogen 12mg/dl (7-20) Creatinine 0.66mg/dl (0.44-1.00) Glucose Level 108mg/dl (70-220) Calcium Level 8.3mg/dl (8.4-10.2) Phosphorus Level 2.9mg/dl (2.5-4.9) Magnesium Level 1.9mg/dl (1.7-2.5) Total Bilirubin 2.1mg/dl (0.2-1.3) Direct Bilirubin 0.00mg/dl (0.00-0.20) Indirect Bilirubin 2.1mg/dl (0-1.1) Aspartate Amino Transf (AST/SGOT) 53IU/L (15-46) Alanine Aminotransferase (ALT/SGPT) 66IU/L (13-69) Alkaline Phosphatase 62IU/L (42-121) B-Type Natriuretic Peptide 299PG/ML (0-125) Total Protein 6.5g/dl (6.1-8.1) Albumin 3.3g/dl (3.3-4.9) Globulin 3.20g/dl (1.3-3.2) Albumin/Globulin Ratio 1.03 WADE BRINK Aug 14, 2017 17:32
--- NOTE | 2017-08-14 21:48 | PN ---
Date/Time of Note Date/Time of Note DATE: 08/14/17 TIME: 09:47 Assessment/Plan Lines/Catheters IV Catheter Type (from Nrsg): Peripheral IV Assessment/Plan Assessment/Plan [facility] Progress Note Date of Service: 08/14/17 Today's Impression & Plan: Overall doing well post op without major issues. No major wound problems. With above assessment, I've recommended the following for today: 1. Ok to d/c from my standpoint once medically stable 2. D/c instructions: Please call [phone] if any of fever, nausea, vomiting, discharge from wound , wound redness, increase or sudden pain, blood in stool or vomit, or any other unusual signs or symptoms. Also, please call the same number in a few days to schedule an appointment for your follow up visit. Patient may remove dressings tomorrow. Showers OK starting tomorrow. No swimming , hot tub or bath for 2 weeks. No lifting more than 25 lbs for 8 weeks. Nature of presenting problem: High risk Thank you again for your great care of this very pleasant patient and wonderful family. If there are any questions, please feel free to call me at [phone]. Disclaimer: Inadvertent spelling or grammatical errors are likely due to EHR/ dictation software use and do not reflect on the overall quality of patient care. Subjective: No major events or complaints; no major abd pain and under control with medications; no n/v/d; no sob or cp; ? flatus; - BM; - activity Objective: Vitals: See below Exam: GENERAL: On exam, the patient was laying in bed and appeared to be comfortable and in no acute distress. ABDOMEN: Soft, nontender and nondistended. Incision dressings are clean, dry and intact without any evidence of erythema, edema, discharge, or hernia. There are no peritoneal signs or guarding. SKIN: Skin appears to be pink and feels warm to touch. NEUROLOGIC: Patient is awake, alert, and follows commands appropriately. Exam/Review of Systems Vital Signs Vitals Vital Signs Date Time Temp Pulse Resp B/P Pulse Ox O2 Delivery O2 Flow Rate FiO2 08/14/17 12:23 94 08/14/17 11:40 98.3 18 120/59 93 08/13/17 18:01 Room Air Intake and Output 08/13/17 08/13/17 08/14/17 15:00 23:00 07:00 Intake Total 900 ml 400 ml Output Total 40 ml Balance 860 ml 400 ml Results Result Diagram: 08/14/17 0857 08/14/17 0857 ALLISON OVALLE M.D. Aug 14, 2017 21:48
== END 2017-08-14 13:17 | disposition home or self-care (01) | DRG 419 ==
LOC: REC 07:53 → EDSTATUS 10:00 → MS4 18:26
PROVIDERS: ADMIT Transplant Surgery; ATTEND Transplant Surgery
PROC: 0FT44ZZ Resection of Gallbladder, Percutaneous Endoscopic Approach (ICD-10-PCS; principal; 2017-08-13 10:00)
DX: K80.12 Calculus of gallbladder with acute and chronic cholecystitis without obstruction (principal); I11.0 Hypertensive heart disease with heart failure; I50.9 Heart failure, unspecified; E78.00 Pure hypercholesterolemia, unspecified; M81.0 Age-related osteoporosis without current pathological fracture
CPT/HCPCS: 80053; 83735; 83880; 84100; 85025; 85610; 85730; 86850; 86900; 86901; 88300; 88304; J0690; J1170; J1650; J2175; J2405; J2710; J2765; J3480

== ENCOUNTER 2017-08-26 10:33 | Outpatient (CLI) | END 2017-08-26 15:58 | disposition home or self-care (01) ==